=== PATIENT | female | born 1965 | race Caucasian/White ===

== ENCOUNTER 2020-10-04 13:21 | Emergency (ER) | payer BC, SELFPAY ==
--- NOTE | ~2020-10-04 | XR_ITS ---
EXAMINATION: XR forearm LT 2V DATE: 10/04/2020 13:44 INDICATION: Left forearm injury and pain. TECHNIQUE: 2 views of left forearm were obtained. COMPARISON: None. FINDINGS: Bone alignment is normal. No fracture. There is mild osteoarthritis of first carpometacarpa l joint. No elbow joint effusion. IMPRESSION: 1. No fracture. Reviewed, dictated and finalized at location A. [facility] IMPRESSION: 1. No fracture.
--- NOTE | 2020-10-04 13:22 | ED.GENADULT ---
HPI - General Adult General Chief complaint: Extremity Injury, Upper Stated complaint: left arm pain Time Seen by Provider: 10/04/20 13:22 Source: patient Mode of arrival: ambulatory Limitations: no limitations History of Present Illness HPI narrative: 55-year-old female patient presents to the [facility] with complaints of left forearm pain. Patient states that she was leaving her doctor's office today and slipped on ice falling onto the sidewalk and landing on her left arm. Denies hitting her head or loss of consciousness. Related Data Home Medications Medication Instructions Recorded Confirmed amlodipine 2.5 mg DAILY 10/04/20 10/04/20 atovaquone 750 mg DAILY 10/04/20 10/04/20 budesonide-formoterol [Symbicort] 2 inh INHALATION BID 10/04/20 10/04/20 ergocalciferol (vitamin D2) 50,000 unit WEEKLY 10/04/20 10/04/20 isavuconazonium sulfate [Cresemba] 186 mg PO BID 10/04/20 10/04/20 levothyroxine 75 mcg DAILY 10/04/20 10/04/20 prednisone 50 mg DAILY 10/04/20 10/04/20 zolpidem 6.25 mg PO DAILY 10/04/20 10/04/20 Allergies Allergy/AdvReac Type Severity Reaction Status Date / Time No Known Allergies Allergy Verified 10/04/20 13:39 Review of Systems Review of Systems: Narrative: CONSTITUTIONAL: Denies fever, chills, or sweats. EYES: Denies visual changes, redness, or discharge. ENT: Denies rhinorrhea, congestion, sore throat, or otalgia. CARDIOVASCULAR: Denies chest pain, palpitations, or edema. RESPIRATORY: Denies cough or dyspnea. GASTROINTESTINAL: Denies abdominal pain, nausea, vomiting, or diarrhea. GENITOURINARY: Denies dysuria or hematuria. SKIN: Denies rash or itching. MUSCULOSKELETAL: Denies back pain, joint pain, or myalgia. Positive left forearm pain NEUROLOGIC: Denies headache, numbness, or weakness. PSYCHIATRIC: Denies anxiety or depression. 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 There is no relevant family history pertinent to the presenting complaint. Exam Narrative: Exam Narrative: GENERAL: Well-appearing, well-nourished, and in no acute distress. HEAD: Normocephalic, atraumatic. EYES: PERRLA and EOMI. ENT: Nares clear, no rhinorrhea or epistaxis. Mucous membranes moist. NECK: Supple. No lymphadenopathy CHEST: Clear to auscultation. No respiratory distress. HEART: Regular rate and rhythm. No murmur heard. Normal peripheral pulses. ABDOMEN: Soft, nontender, nondistended, normal active bowel sounds. EXTREMITIES: The L elbow is without obvious asymmetry or deformity when compared to the R elbow. No obvious surface trauma, ecchymosis or soft tissue swelling. No bony tenderness to palpation of the lateral or medial epicondyle, olecranon, or radial head. Patient does have some pain and tenderness along the left forearm especially when twisting the left wrist and when extending and flexing the elbow. No epicondylar or axillary lymphadenopathy. Pain with flexion, extension, supination, pronation. Normal muscle strength. Intact motor and sensation of ulnar, median, and radial nerves. SKIN: Warm, dry, no rash. NEURO: No focal deficits. Alert and oriented x3. Course Reevaluation(s) Reevaluation #1: Reevaluated patient notified her that her x-ray is negative for any acute fractures. Discussed with her we will go ahead and wrap her arm with an Silas wrap that this is most likely a sprain or strain to the left forearm. Discussed patient she can take Tylenol ibuprofen as needed for the pain. I would also encourage her to ic
[2020-10-04 13:57] VITALS: BP 107/35; PULSE 88; RESP 18; TEMP 36.6; O2SAT 99
== END 2020-10-04 13:59 | disposition home or self-care (01) ==
PROVIDERS: Emergency Provider Nurse Practitioner Family
DX: S59.912A Unspecified injury of left forearm, initial encounter (principal); W00.0XXA Fall on same level due to ice and snow, initial encounter; D46.9 Myelodysplastic syndrome, unspecified; D89.813 Graft-versus-host disease, unspecified
CPT/HCPCS: 73090; 99203; G0463